=== PATIENT | male | born 1965 | race Caucasian/White ===

== ENCOUNTER → 2016-06-10 | Outpatient (CLI) | payer OTHER ==
[2016-06-10 17:21] LABS: CH 31.2; CHCM 35.4; HCT 41.2 % (39.0-53.0); HDW 2.61; HGB 14.2 gm/dL (13.0-17.5); MCH 30.5 pg (25.0-35.0); MCHC 34.5 g/dL (31.0-37.0); MCV 88.6 fL (80.0-100.0); Mean Platelet Volume 6.6; RBC 4.65 m/uL (4.30-5.90); RDW 12.5 % (11.5-15.5); WBC 6.7 k/uL (3.8-10.6)
[2016-06-10 17:36] LABS: C Reactive Protein 7.5 mg/L (<10.0); Rheumatoid Factor, Qnt <9 IU/mL (<12)
[2016-06-10 18:23] LABS: Erythrocyte Sedimentation Rate 8 mm/hr (0-15)
[2016-06-11 00:35] LABS: ANA w/Reflex to Titer NEGATIVE (NEGATIVE)
[2016-06-11 07:26] LABS: Lyme Antibodies Total(IgG/IgM) 0.06 (<0.90)
[2016-06-11 08:24] LABS: HLA B27 NEGATIVE; HLA B27 Comment SEEBELOW
== END | disposition home or self-care (01) ==
LOC: LABWHC1 16:52
PROVIDERS: ATTEND Orthopaedic Surgery
DX: Z47.89 Encounter for other orthopedic aftercare (principal); M17.11 Unilateral primary osteoarthritis, right knee; M25.461 Effusion, right knee; Z98.890 Other specified postprocedural states
CPT/HCPCS: 36415; 84443; 85027; 85652; 86038; 86060; 86140; 86431; 86618; 86812

== ENCOUNTER → 2016-08-15 | Outpatient (CLI) | payer OTHER ==
--- NOTE | 2016-08-15 23:16 | MR ---
EXAMINATION TYPE: MR cervical spine wo con DATE OF EXAM: 08/15/2016 COMPARISON: NONE HISTORY: Neck pain, isaac arm weakness, headaches x 1 year, no surgery/trauma TECHNIQUE: Multiplanar, multisequence images of the cervical spine were acquired. Findings The cervical vertebra have normal alignment. There is decreased signal and mild narrowing the disc sp aces throughout the cervical spine. There are small posterior disc herniations at C3-4 C4-5 C5-6. The re is some narrowing of the spinal canal to 7 mm at C3-4 and 8 mm at C5-6. There is linear fluid sign al within the cervical cord from C5 to T1. There is a small 5 mm linear area of increased signal with in the cord at C3-4. The brainstem is intact. There is no evidence of a fracture. There is no paraspi nal mass. IMPRESSION: Multilevel spondylosis. Mild multilevel posterior cervical disc herniation with mild spinal stenosis. There is a syrinx from C5 to T1 as well as a short segment of edema or syrinx within the cord at C3- 4 disc level. No mass is seen to suggest an underlying tumor.
== END | disposition home or self-care (01) ==
LOC: RADMRIMAIN 19:10
PROVIDERS: ATTEND Internal Medicine Rheumatology
DX: M48.02 Spinal stenosis, cervical region (principal); M50.11 Cervical disc disorder with radiculopathy, high cervical region; M47.22 Other spondylosis with radiculopathy, cervical region; G95.0 Syringomyelia and syringobulbia
CPT/HCPCS: 72141

== ENCOUNTER 2017-04-10 18:06 | Inpatient (IN) | payer OTHER ==
[2017-04-10] MEDS ORDERED: SODIUM CHLORIDE 0.9% 1,000 ML IV STA (19:45)
[2017-04-10] MEDS ORDERED: SODIUM CHLORIDE 0.9% 500 ML IV STA (19:45)
--- NOTE | 2017-04-10 19:48 | ED ---
General Adult HPI - General Chief complaint: GI Bleed Stated complaint: ABDOMINAL PAIN Time Seen by Provider: 04/10/17 18:25 Source: patient, RN notes reviewed Mode of arrival: ambulatory Limitations: no limitations - History of Present Illness Initial comments: This is a 51-year-old male who presents emergency department stating that a week ago he had surgery on his neck with an anterior approach in a cervical fusion. Patient states he came back to the hospital secondary to throat swelling and pain in the throat a few days ago was admitted. Patient states since she's been back home again he is now having rectal bleeding today and some abdominal cramping. Patient denies being in any thinners. Patient states she's never had history this before. Patient states he has been vomiting over the last couple of days and he is afraid he anything because it makes him nauseous and vomit which hurts extremely bad. Patient states he has no specific area of abdominal pain but kind of diffuse lower abdominal cramping. Patient denies any fever chills. Patient denies any previous abdominal surgeries. Patient denies any chest pain difficulty breathing or shortness of breath. - Related Data Home Medications Medication Instructions Recorded Confirmed Ibuprofen [Motrin] 800 mg PO BID 10/11/15 10/11/15 Previous Rx's Medication Instructions Recorded Dexamethasone 0.75 mg PO DIRECTED #12 tablet 10/11/15 Hydrocodone/Acetaminophen [[place] 1 each PO Q6HR PRN #20 tab 10/11/15 5-325] Ibuprofen [Motrin] 800 mg PO Q6HR PRN #30 tab 10/11/15 Allergies Allergy/AdvReac Type Severity Reaction Status Date / Time No Known Allergies Allergy Verified 04/10/17 18:24 Review of Systems ROS Statement: Those systems with pertinent positive or pertinent negative responses have been documented in the HPI. ROS Other: All systems not noted in ROS Statement are negative. Past Medical History Past Medical History: No Reported History History of Any Multi-Drug Resistant Organisms: None Reported Additional Past Surgical History / Comment(s): right knee and hand, neck surgery , fusion C3-4 Past Psychological History: No Psychological Hx Reported Smoking Status: Current every day smoker Past Alcohol Use History: Occasional Past Drug Use History: None Reported General Exam - General Exam Comments Initial Comments: GENERAL: Patient is well-developed and well-nourished. Patient is nontoxic and well- hydrated and is in mild distress. ENT: Neck is soft and supple. No significant lymphadenopathy is noted. Oropharynx is clear. Moist mucous membranes. Neck has full range of motion without eliciting any pain. EYES: The sclera were anicteric and conjunctiva were pink and moist. Extraocular movements were intact and pupils were equal round and reactive to light. Eyelids were unremarkable. PULMONARY: Unlabored respirations. Good breath sounds bilaterally. No audible rales rhonchi or wheezing was noted. CARDIOVASCULAR: There is a regular rate and rhythm without any murmurs gallops or rubs. ABDOMEN: Mild lower abdominal tenderness no rebound or guarding slightly more tender on the left than the right. No palpable organomegaly was noted. There is no palpable pulsatile mass. SKIN: Skin is clear with no lesions or rashes and otherwise unremarkable. NEUROLOGIC: Patient is alert and oriented x3. Cranial nerves II through XII are grossly intact. Motor and sensory are also intact. Normal speech, volume and content. Symmetrical smile. MUSCULOSKELETAL: Normal extremities with adequate strength and full range of motion. No lower extremity swelling or edema. No calf tenderness. LYMPHATICS: No significant lymphadenopathy is noted PSYCHIATRIC: Normal psychiatric evaluation. Limitations: no limitations Course Vital Signs 04/10/17 04/10/17 18:24 20:42 Temperature 98.2 F 98.1 F Pulse Rate 89 64 Respiratory 17 18 Rate Blood Pressure 144/101 146/95 O2 Sat by Pulse 95 97 Oximetry Medical Decision Making - Medical Decision Making Patient stated he got steroid shots on Monday and Monday and was post starts to hurt again today for swelling in his neck. Patient denies any abdominal pain he states it's lower abdominal cramping - Lab Data Result diagrams: 04/10/17 20:05 04/10/17 20:05 Lab Results 04/10/17 04/10/17 04/10/17 Range/Units 20:05 20:05 20:05 WBC 19.8 H (3.8-10.6) k/uL RBC 5.01 (4.30-5.90) m/uL Hgb 15.1 (13.0-17.5) gm/dL Hct 45.4 (39.0-53.0) % MCV 90.6 (80.0-100.0) fL MCH 30.1 (25.0-35.0) pg MCHC 33.3 (31.0-37.0) g/dL RDW 12.8 (11.5-15.5) % Plt Count 282 (150-450) k/uL Neutrophils % 81 % Lymphocytes % 10 % Monocytes % 6 % Eosinophils % 2 % Basophils % 0 % Neutrophils # 16.0 H (1.3-7.7) k/uL Lymphocytes # 2.0 (1.0-4.8) k/uL Monocytes # 1.2 H (0-1.0) k/uL Eosinophils # 0.4 (0-0.7) k/uL Basophils # 0.1 (0-0.2) k/uL PT 9.8 (9.0-12.0) sec INR 1.0 (<1.2) APTT 23.7 (22.0-30.0) sec Sodium 138 (137-145) mmol/L Potassium 4.1 (3.5-5.1) mmol/L Chloride 101 (98-107) mmol/L Carbon Dioxide 25 (22-30) mmol/L Anion Gap 12 mmol/L BUN 21 H (9-20) mg/dL Creatinine 0.88 (0.66-1.25) mg/dL Est GFR (MDRD) Af Amer >60 (>60 ml/min/1.73 sqM) Est GFR (MDRD) Non-Af >60 (>60 ml/min/1.73 sqM) Glucose 101 H (74-99) mg/dL Calcium 9.8 (8.4-10.2) mg/dL Total Bilirubin 0.8 (0.2-1.3) mg/dL AST 17 (17-59) U/L ALT 33 (21-72) U/L Alkaline Phosphatase 85 (38-126) U/L Total Protein 6.7 (6.3-8.2) g/dL Albumin 4.0 (3.5-5.0) g/dL Disposition Clinical Impression: Abdominal cramping, Gastrointestinal hemorrhage Disposition: ADMITTED IP TO THIS HOSP Referrals: Quique Baker MD [Primary Care Provider] - 1-2 days Time of Disposition: 21:34
[2017-04-10 20:19] LABS: Basophils # (A) 0.1 k/uL (0-0.2); Basophils % (A) 0 %; Eosinophils # (A) 0.4 k/uL (0-0.7); Eosinophils % (A) 2 %; HCT 45.4 % (39.0-53.0); HGB 15.1 gm/dL (13.0-17.5); Lymphocytes % (A) 10 %; MCH 30.1 pg (25.0-35.0); MCHC 33.3 g/dL (31.0-37.0); MCV 90.6 fL (80.0-100.0); Mean Platelet Volume 6.7; Monocytes # (A) 1.2 k/uL (0-1.0); Monocytes % (A) 6 %; Neutrophils % (A) 81 %; Platelet Count 282 k/uL (150-450); RBC 5.01 m/uL (4.30-5.90); RDW 12.8 % (11.5-15.5); WBC 19.8 k/uL (3.8-10.6)
[2017-04-10 20:33] LABS: ALT 33 U/L (21-72); AST 17 U/L (17-59); Alkaline Phosphatase 85 U/L (38-126); Anion Gap 12 mmol/L; Blood Urea Nitrogen 21 mg/dL (9-20); Calcium 9.8 mg/dL (8.4-10.2); Carbon Dioxide 25 mmol/L (22-30); Chloride 101 mmol/L (98-107); Glucose 101 mg/dL (74-99); Potassium 4.1 mmol/L (3.5-5.1); Sodium 138 mmol/L (137-145); Total Bilirubin 0.8 mg/dL (0.2-1.3); Total Protein 6.7 g/dL (6.3-8.2)
[2017-04-10 20:36] LABS: Partial Thromboplastin Time 23.7 sec (22.0-30.0); Prothrombin Time 9.8 sec (9.0-12.0)
[2017-04-10] MEDS ORDERED: SODIUM CHLORIDE 0.9% 1,000 ML IV ONE (21:40)
[2017-04-10] MEDS: MORPHINE SULFATE 4 MG/ML SYRINGE IVP PRN (23:21)
[2017-04-10] MEDS: ONDANSETRON 4 MG/2 ML VIAL IVP PRN (23:22)
[2017-04-10 23:49] VITALS: BMI 25.2
[2017-04-11] MEDS ORDERED: METHOCARBAMOL 750 MG TAB PO PRN (00:05)
[2017-04-11] MEDS ORDERED: ALBUTEROL NEBULIZED 2.5 MG/3 ML INHALATION PRN (00:05)
[2017-04-11] MEDS: ONDANSETRON 4 MG/2 ML VIAL IVP PRN ×3 (05:43→21:27)
[2017-04-11] MEDS: MORPHINE SULFATE 4 MG/ML SYRINGE IVP PRN ×5 (05:43→21:27)
[2017-04-11 08:39] LABS: Basophils # (A) 0.1 k/uL (0-0.2); Basophils % (A) 0 %; Eosinophils # (A) 0.3 k/uL (0-0.7); Eosinophils % (A) 2 %; HCT 41.7 % (39.0-53.0); HGB 13.9 gm/dL (13.0-17.5); Lymphocytes # (A) 1.7 k/uL (1.0-4.8); Lymphocytes % (A) 9 %; MCHC 33.4 g/dL (31.0-37.0); MCV 89.8 fL (80.0-100.0); Mean Platelet Volume 6.9; Monocytes # (A) 1.3 k/uL (0-1.0); Monocytes % (A) 7 %; Neutrophils # (A) 15.5 k/uL (1.3-7.7); Neutrophils % (A) 82 %; Platelet Count 248 k/uL (150-450); RBC 4.64 m/uL (4.30-5.90); RDW 12.8 % (11.5-15.5); WBC 19.1 k/uL (3.8-10.6)
--- NOTE | 2017-04-11 10:03 | P.CONS ---
History of Present Illness - Reason for Consult Consult date: 04/11/17 Rectal bleeding Requesting physician: Jarocho Matt - History of Present Illness 51-year-old gentleman status post recent neck surgery fusion at [facility] a week ago Monday presents with acute lower abdominal crampy abdominal pain and bloody stools. Patient was recently hospitalized Monday at [facility] for postoperative dysphagia type symptoms placed on steroids and discharged. On Monday he developed intractable nausea vomiting intense lower abdominal cramping associated with multiple gross bloody bowel movements. Denies fever chills melena or hematemesis. Last emesis was Monday. Bowel movement this morning was mixed with stool and blood. Nursing has not witnessed his bowel movements. Admission hemoglobin 15.1. Presently 13.9. White count 19.1. Platelet 248. MCV 89. INR 1.0. BUN 21. Stool occult blood negative. Creatinine 0.8. No history of GI bleed. Last colonoscopy several years ago to his memory was unremarkable. No excessive NSAIDs or aspirin. No alcohol. Review of Systems Constitutional: Denies fever, chills, sweats, weight gain, or loss. HEENT: Negative for migraines, blurred vision or loss, earaches, drainage, tinnitus, oral mucosal lesions, dysphagia, or odynophagia. Cardiac: Negative for chest pain, arrhythmias, or palpitation. Respiratory: Negative for shortness of breath, hemoptysis, cough, or sputum production. Gastrointestinal: See HPI for pertinent findings. Genitourinary: Negative for hematuria, urgency, frequency, polyuria, dysuria, or penile discharge. Musculoskeletal: Degenerative disc disease. Negative for muscle aches, swelling , arthritis, and arthralgias. Neurologic: Negative for stroke or TIA. Endocrine: Negative for thyroid problems. Skin: Negative for rash or itching. Psychiatric: Negative history for depression and anxiety Past Medical History Past Medical History: Pneumonia History of Any Multi-Drug Resistant Organisms: None Reported Additional Past Surgical History / Comment(s): right knee and hand, neck surgery , fusion C3-4 Past Psychological History: No Psychological Hx Reported Smoking Status: Former smoker Past Alcohol Use History: Occasional Additional Past Alcohol Use History / Comment(s): Quit smoking a few weeks ago. Past Drug Use History: None Reported Medications and Allergies Home Medications Medication Instructions Recorded Confirmed Type Albuterol Sulfate [Proair 2 inhaler PO Q4HR 04/10/17 04/11/17 History Respiclick] HYDROcodone/APAP 10-325MG [[place] 1 tab PO Q6H PRN 04/10/17 04/10/17 History 10-325] Methocarbamol [Robaxin] 750 mg PO Q8H 04/10/17 04/10/17 History Ondansetron [Zofran] 4 mg PO Q8HR PRN 04/10/17 04/10/17 History Sennosides-Docusate Sodium 1 tab PO BID 04/10/17 04/10/17 History [Senokot-S] Allergies Allergy/AdvReac Type Severity Reaction Status Date / Time No Known Allergies Allergy Verified 04/10/17 22:18 Physical Exam Vitals: Vital Signs Temp Pulse Pulse Resp BP BP Pulse Ox 04/11/17 06:07 98.3 F 63 18 137/87 96 04/10/17 23:00 97.4 F L 74 18 139/99 95 04/10/17 22:08 98.2 F 67 16 150/90 96 04/10/17 20:42 98.1 F 64 18 146/95 97 04/10/17 18:24 98.2 F 89 17 144/101 95 Intake and Output 04/10/17 04/11/17 04/11/17 22:59 06:59 14:59 Other: Voiding Method Toilet # Voids 1 # Bowel Movements 1 Weight 84.5 kg General appearance: The patient is alert, oriented, in no acute distress. HET: Head is normocephalic and atraumatic. Pupils are equal and reactive. Oropharynx is clear without lesions. Neck: Neck brace in place. Heart: S1 S2. Regular rate and rhythm. Lungs: No crackles or wheezes are heard. Abdomen: Soft, mild tenderness to the mid/ left lower quadrant nondistended with bowel sounds. No peritoneal signs. No palpable organomegaly or masses. Extremities: Normal skin color and turgor. No cyanosis, rash, ulceration, clubbing, or edema. Radial and pedal pulses are 2/4 bilaterally. Neurological: No focal deficits. Strength and sensation are grossly intact. Results CBC & Chem 7: 04/11/17 07:53 04/10/17 20:05 Labs: Abnormal Lab Results - Last 24 Hours (Table) 04/10/17 04/10/17 04/11/17 Range/Units 20:05 20:05 07:53 WBC 19.8 H 19.1 H (3.8-10.6) k/uL Neutrophils # 16.0 H 15.5 H (1.3-7.7) k/uL Monocytes # 1.2 H 1.3 H (0-1.0) k/uL BUN 21 H (9-20) mg/dL Glucose 101 H (74-99) mg/dL Assessment and Plan (1) Abdominal pain Narrative/Plan: 51-year-old male status post recent neck surgery admitted with leukocytosis, acute crampy lower abdominal pain with bloody stools. Possible self-limiting infectious colitis possible inflammatory colitis possible ischemic. Hemoglobin presently 13.9. Current Visit: Yes Status: Acute Code(s): R10.9 - UNSPECIFIED ABDOMINAL PAIN SNOMED Code(s): 06620197 (2) Rectal bleeding Current Visit: Yes Status: Acute Code(s): K62.5 - HEMORRHAGE OF ANUS AND RECTUM SNOMED Code(s): 20385105 Plan: 1. Stool studies include Clostridium difficile testing secondary to recent hospitalization. Nursing was advised to place a container in toilet for stool collection and record. Notify GI service if patient has recurrent bloody stools. 2. Clear liquid diet. CBC monitoring. Inpatient colonoscopy contingent on clinical course. 3. Will follow closely with you. Thank you for this kind referral and the opportunity to participate in the care of your patient. This consultation was discussed with Dr. Villanueva. The impression and plan of care have been directed as dictated.
--- NOTE | 2017-04-11 11:55 | P.CNPUL ---
History of Present Illness Consult date: 04/11/17 Reason for consult: asthma Chief complaint: GI bleed/abdominal pain History of present illness: Consult dated 04/11/2017 This is a 51-year-old male who presented to the emergency department complaining of a week's worth of throat pain with swallowing and pain in the throat and neck area. The patient recently had a cervical fusion via the anterior approach. Subsequent to that, he was having some rectal bleeding and some abdominal cramping and pain. He apparently is also had some nausea and vomiting over last couple of days the pain is mostly cramping in nature and diffuse throughout the abdomen. No fever or chills. He denies any previous abdominal surgeries. Denies any chest pain. No shortness of breath. I apparently saw him a couple years ago and diagnosed him with him as having asthma. He apparently is on a rescue inhaler and Advair. He did not bring either to the hospital with him. He is concerned that if he doesn't get something, his asthma acting up. Again not having any respiratory issues at this time. Denies any shortness of breath chest tightness wheezing cough phlegm production hemoptysis or any other pulmonary complaints at this time. Review of Systems A 12 point review of system is positive for abdominal pain and cramping GI bleed nausea and vomiting. He absolutely denies any respiratory issues. His asthma is currently not active. No shortness phlegm production. Past Medical History Past Medical History: Pneumonia History of Any Multi-Drug Resistant Organisms: None Reported Additional Past Surgical History / Comment(s): right knee and hand, neck surgery , fusion C3-4 Past Psychological History: No Psychological Hx Reported Smoking Status: Former smoker Past Alcohol Use History: Occasional Additional Past Alcohol Use History / Comment(s): Quit smoking a few weeks ago. Past Drug Use History: None Reported Medications and Allergies Home Medications Medication Instructions Recorded Confirmed Type Albuterol Sulfate [Proair 2 inhaler PO Q4HR 04/10/17 04/11/17 History Respiclick] HYDROcodone/APAP 10-325MG [[place] 1 tab PO Q6H PRN 04/10/17 04/10/17 History 10-325] Methocarbamol [Robaxin] 750 mg PO Q8H 04/10/17 04/10/17 History Ondansetron [Zofran] 4 mg PO Q8HR PRN 04/10/17 04/10/17 History Sennosides-Docusate Sodium 1 tab PO BID 04/10/17 04/10/17 History [Senokot-S] Allergies Allergy/AdvReac Type Severity Reaction Status Date / Time No Known Allergies Allergy Verified 04/10/17 22:18 Physical Exam Osteopathic Statement: *. No significant issues noted on an osteopathic structural exam other than those noted in the History and Physical/Consult. Vitals: Vital Signs Temp Pulse Pulse Resp BP BP Pulse Ox 04/11/17 06:07 98.3 F 63 18 137/87 96 04/10/17 23:00 97.4 F L 74 18 139/99 95 04/10/17 22:08 98.2 F 67 16 150/90 96 04/10/17 20:42 98.1 F 64 18 146/95 97 04/10/17 18:24 98.2 F 89 17 144/101 95 Intake and Output 04/10/17 04/11/17 04/11/17 22:59 06:59 14:59 Other: Voiding Method Toilet # Voids 1 # Bowel Movements 1 Weight 84.5 kg No acute distress, oriented 3. HEENT examination is grossly unremarkable. Mucous membranes are moist. No oral lesions. Neck supple. Full range of motion. No adenopathy thyromegaly or neck vein distention. The patient is wearing a cervical collar. Cardiovascular examination reveals regular rhythm rate. S1-S2 normal. No S3 or S4. No discernible murmur noted. Lungs reveal clear breath sounds. Her sounds are equal bilaterally. No adventitious lung sounds including wheezes rhonchi or crackles. Abdomen soft bowel sounds are heard. No masses or tenderness. Extremities are intact. No cyanosis clubbing or edema. Skin is without rash or lesion. Neurologic examination is brief but nonfocal. Results - Laboratory Findings CBC and BMP: 04/11/17 07:53 04/10/17 20:05 PT/INR, D-dimer PT 9.8 sec (9.0-12.0) 04/10/17 20:05 INR 1.0 (<1.2) 04/10/17 20:05 Abnormal lab findings: Abnormal Labs 04/10/17 04/10/17 04/11/17 20:05 20:05 07:53 WBC 19.8 H 19.1 H Neutrophils # 16.0 H 15.5 H Monocytes # 1.2 H 1.3 H BUN 21 H Glucose 101 H - Diagnostic Findings Chest x-ray: image reviewed (Labs x-rays a medications are all reviewed.) Assessment and Plan Assessment: Assessment Recent cervical fusion, anterior approach Abdominal pain cramping nausea vomiting and GI bleed History of asthma, long-standing in inactive. History of ongoing tobacco use with nicotine addiction Plan: Plan dated 04/11/2017 I will order the patient Symbicort 160/4.5, 2 puffs twice a day and will order him some updrafts with albuterol when necessary. No additional recommendations are made. His asthma is currently not active. We'll only see the patient has needed. Time with Patient: Greater than 30
--- NOTE | 2017-04-11 16:27 | CT ---
EXAMINATION TYPE: CT abdomen pelvis wo con DATE OF EXAM: 04/11/2017 COMPARISON: NONE HISTORY: 51-year-old male with pain, possible colitis CT DLP: 981 mGycm. Automated exposure control for dose reduction was used. TECHNIQUE: Contiguous axial scanning of the abdomen and pelvis without IV contrast. Coronal and sagit antonio reconstructions performed. FINDINGS: Heart is normal size without pericardial effusion. Strandy atelectasis in the lung bases. There is a trace right greater than left effusion. Calcified granuloma left base. Tiny hiatal hernia. Noncontrast appearance of the liver, adrenal glands, kidneys, spleen, and pancreas show no gross abno rmality. The gallbladder is borderline hydropic measuring 4.0 cm wide. No surrounding inflammatory change. There is trace perihepatic ascites and small ascites tracking down along the lower abdomen and small ascites collecting in the cul-de-sac. Moderate atherosclerotic calcifications distal abdominal aorta with mild aneurysm at 3.0 cm. Small fatty umbilical hernia. Couple borderline distended small bowel loops in the left upper and mid abdomen without transition po int. Sigmoid diverticulosis. There is long segment wall thickening of the colon extending from the spleni c flexure down to the proximal sigmoid. Moderate edematous wall thickening with moderate surrounding fat stranding. Mild circumferential bladder wall thickening could represent cystitis or chronic bladder wall hypertr ophy. Prostate gland prominent at 4.1 cm wide. Bones: Mild degenerative changes at the SI joints. Degenerative disc disease mid to lower lumbar spin e with facet arthropathy lower lumbar spine. No osseous destructive process. IMPRESSION: 1. Nonspecific long segment colitis extending from the splenic flexure down to the proximal sigmoid with moderate edematous wall thickening and surrounding inflammation. 2. Mild abdominopelvic ascites probably reactive. No free air. 3. Trace pleural effusions. 4. Borderline hydropic gallbladder likely relating to fasting state. If right upper quadrant pain or concern for early acute cholecystitis, follow-up ultrasound or HIDA scan. 5. Sigmoid diverticulosis without acute diverticulitis.
[2017-04-11] MEDS: PIPERACILLIN-TAZOBACTAM 3.375 GM in DEXTROSE/WATER 1 50ML.BAG IVPB SCH ×2 (16:29→23:50)
[2017-04-11] MEDS: LACTATED RINGERS 1,000 ML IV SCH (16:30)
--- NOTE | 2017-04-11 16:59 | HP ---
HISTORY AND PHYSICAL DATE OF ADMISSION: April 10, 2017. PRESENT COMPLAINT: Abdominal cramping, bloody stool. HISTORY OF PRESENTING COMPLAINT: This is a very pleasant 51 -year-old patient of Dr. Baker. Exactly a week ago, the patient underwent a cervical spine fusion at [facility] by Dr. Ni. The patient is having trouble swallowing, was readmitted on Monday and then discharged on Monday, was given some steroids. The patient was on a liquid and a soft diet. The next day, patient started having increasing abdominal pain and cramping and bloody stools and therefore presented here. The patient denies any prior history of peptic ulcer disease. The patient was taking Motrin about 800 mg prior to the surgery. The patient has diffuse abdominal pain. No fever. Because still having some trouble swallowing, Dr. Gonzalez was consulted last night from an airway standpoint. The patient has a cervical collar in place. Feeling weak and tired. REVIEW OF SYSTEMS: Constitutional: Tired. HEENT: Slight trouble in swallowing but no different than his baseline, that he has had for the last one week. RESPIRATORY: None. Cardiovascular none. Gastrointestinal as above. Genitourinary: None. Musculoskeletal: Neck pain prior to surgery. Dermatological: None. Hematologic: None. Lymphatic: None. Psychiatry: None. NEUROLOGICAL: None. PAST MEDICAL HISTORY: Cervical spine problem, asthma. PAST SURGICAL HISTORY: Right knee and hand, neck surgeries, fusion to C3, C4. 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 Smokes about 3-4 cigarettes a day, stopped 2 weeks ago prior to surgery. . FAMILY HISTORY: Reviewed, noncontributory to presentation. HOME MEDICATIONS: 1. ProAir 2 inhaler q.4h p.r.n. 2. Senokot S 1 tablet p.o. b.i.d. 3. Zofran 4 mg p.o. p.r.n. 4. Robaxin 750 mg p.o. p.r.n. 5. [place] 10 1 tab q.6h p.r.n. ALLERGIES: None. EXAMINATION: Vital signs on presentation: Temperature 98.2, pulse 59, respiratory rate 17, blood pressure is 144/101, pulse ox 95% on room. General appearance: Average build, lying in bed. EYES: Pupils are equal. Conjunctivae are normal. HEENT external appearance of nose and ears normal. Oral cavity normal. Neck: Cervical collar in place. Respiratory effort: Lungs fair entry. Cardiovascular: 1st and 2nd sounds normal. No edema. Abdomen diffuse tenderness. Soft. No guarding or rigidity. Liver and spleen not palpable. Lymphatics: No lymph nodes palpable in the neck or axilla. Psychiatry: Alert and oriented times three. Mood and affect normal. Neurological: Pupils equal. Cranial nerves grossly intact. Power and sensation grossly intact. INVESTIGATIONS: White count 9.8, hemoglobin 15.1, potassium 4.1, BUN 21, creatinine 0.888. ASSESSMENT: 1. This is a patient who presents with 2 days of increasing diffuse abdominal pain, cramping, diffuse tenderness. No guarding or rigidity with bloody stool. This is most likely infectious colitis, less likely ischemic colitis. Peptic ulcer disease is possible, but given that this abdominal pain is diffuse as opposed to upper abdominal, makes colitis more likely. 2. Mild dysphagia, probably due to swelling from recent cervical spine surgery. 3. Cervical spine C3-4 fusion, status post. 4. Mild intermittent asthma, stable. PLAN: Dr. Gonzalez from Pulmonary was consulted, so was Gastroenterology. We will order a CT scan of the abdomen and pelvis, and we will give the patient IV ceftriaxone and IV fluids. Hold off any anticoagulation because of the bleeding. Care was discussed with the patient. We will get a chest x-ray, abdominal x-ray and a CT scan too. Care was discussed with the patient. Questions were answered. Copy to Dr. Baker. MMDICKL / CLOVERN: [id number] /
--- NOTE | 2017-04-11 20:01 | XR ---
EXAMINATION TYPE: XR abdomen 2V DATE OF EXAM: 04/11/2017 4:02 PM CLINICAL HISTORY: Abdominal pain TECHNIQUE: Single supine image of the abdomen is obtained. COMPARISON: None. FINDINGS: Scattered air-fluid levels are seen within nondilated small bowel within mildly dilated bow el within the left upper quadrant measuring up to 3.9 cm osseous gas is noted within the descending c olon. No abnormal calcification is seen within the abdomen or pelvis. Osseous structures are intact. The lung bases are clear and the osseous structures are intact. IMPRESSION: Mildly dilated loops of small bowel within the left upper quadrant suggestive of ileus.
[2017-04-11] MEDS: SYMBICORT 160-4.5 MCG INHALER INHALATION SCH (21:12)
[2017-04-12] MEDS: MORPHINE SULFATE 4 MG/ML SYRINGE IVP PRN ×5 (02:49→22:45)
[2017-04-12] MEDS: ONDANSETRON 4 MG/2 ML VIAL IVP PRN ×2 (02:51→08:01)
[2017-04-12] MEDS: LACTATED RINGERS 1,000 ML IV SCH ×4 (02:53→23:15)
[2017-04-12] MEDS: SYMBICORT 160-4.5 MCG INHALER INHALATION SCH ×2 (07:49→18:58)
[2017-04-12] MEDS: PIPERACILLIN-TAZOBACTAM 3.375 GM in DEXTROSE/WATER 1 50ML.BAG IVPB SCH ×3 (08:01→23:15)
[2017-04-12 08:21] LABS: Basophils % (A) 0 %; Eosinophils # (A) 0.5 k/uL (0-0.7); Eosinophils % (A) 3 %; HCT 41.2 % (39.0-53.0); HGB 13.8 gm/dL (13.0-17.5); Lymphocytes # (A) 1.7 k/uL (1.0-4.8); Lymphocytes % (A) 10 %; MCHC 33.6 g/dL (31.0-37.0); MCV 89.5 fL (80.0-100.0); Mean Platelet Volume 7.1; Monocytes # (A) 0.9 k/uL (0-1.0); Monocytes % (A) 5 %; Neutrophils # (A) 13.9 k/uL (1.3-7.7); Neutrophils % (A) 81 %; Platelet Count 241 k/uL (150-450); RDW 12.9 % (11.5-15.5); WBC 17.2 k/uL (3.8-10.6)
[2017-04-12 08:55] LABS: Anion Gap 13 mmol/L; Blood Urea Nitrogen 13 mg/dL (9-20); Calcium 9.1 mg/dL (8.4-10.2); Carbon Dioxide 26 mmol/L (22-30); Chloride 99 mmol/L (98-107); Glucose 83 mg/dL (74-99); Potassium 4.1 mmol/L (3.5-5.1); Sodium 138 mmol/L (137-145)
--- NOTE | 2017-04-12 10:57 | P.PN ---
Subjective Progress Note Date: 04/12/17 Principal diagnosis: Abdominal pain and rectal bleeding No further bloody bowel movements. Abdominal pain still present slightly improved. Afebrile. Hemoglobin 13.8. White count 17.2. CT abdomen long segment wall thickening or colon extending from splenic flexure down to proximal sigmoid. Sigmoid diverticulosis without diverticulitis. Objective - Vital Signs Vital signs: Vital Signs Temp 98.7 F 04/12/17 06:41 Pulse 67 04/12/17 06:41 Resp 12 04/12/17 06:41 BP 141/90 04/12/17 06:41 Pulse Ox 97 04/12/17 06:41 Intake & Output 04/11/17 04/12/17 04/12/17 18:59 06:59 18:59 Other: Voiding Method Toilet # Voids 1 1 # Bowel Movements 0 - Exam General appearance: The patient is alert, oriented, in no acute distress. HET: Head is normocephalic and atraumatic. Pupils are equal and reactive. Oropharynx is clear without lesions. Neck: Supple without lymphadenopathy. Trachea midline. Heart: S1 S2. Regular rate and rhythm. Lungs: No crackles or wheezes are heard. Abdomen: Soft, mild midabdominal left-sided tenderness, nondistended with bowel sounds. No peritoneal signs. No palpable organomegaly or masses. Extremities: Normal skin color and turgor. No cyanosis, rash, ulceration, clubbing, or edema. Radial and pedal pulses are 2/4 bilaterally. Neurological: No focal deficits. Strength and sensation are grossly intact. - Labs CBC & Chem 7: 04/12/17 07:48 04/12/17 07:48 Labs: Abnormal Lab Results - Last 24 Hours (Table) 04/12/17 Range/Units 07:48 WBC 17.2 H (3.8-10.6) k/uL Neutrophils # 13.9 H (1.3-7.7) k/uL Assessment and Plan (1) Abdominal pain Narrative/Plan: 51-year-old male status post recent neck surgery admitted with leukocytosis, acute crampy lower abdominal pain with bloody stools. Possible self-limiting infectious colitis possible inflammatory colitis possible ischemic. Hemoglobin presently 13.8. Current Visit: Yes Status: Acute Code(s): R10.9 - UNSPECIFIED ABDOMINAL PAIN SNOMED Code(s): 91729744 (2) Rectal bleeding Current Visit: Yes Status: Acute Code(s): K62.5 - HEMORRHAGE OF ANUS AND RECTUM SNOMED Code(s): 56893636 Plan: 1. Continue clear liquids and advance slowly. 2. Outpatient colonoscopy recommended 2-4 weeks. 3. Continue with antibiotics supportive measures. We'll continue to follow with you. Assessment and plan a care discussed with Dr. Villanueva
--- NOTE | 2017-04-12 12:11 | P.PN ---
Subjective Progress Note Date: 04/12/17 Principal diagnosis: GI bleed Progress note dated 04/12/2017 51-year-old male who presented to the emergency department with complaints of a week's worth of throat pain or difficulty swallowing. The patient had a recent cervical fusion via the anterior approach has a neck brace soft collar in place. In addition, he was having some rectal bleeding with abdominal cramping pain. The patient has a prior diagnosis of asthma, diagnosed by me a couple years back. I've not seen him recently. I saw him yesterday just basically say that he doesn't fact have asthma and he should be on his medications. At home, he is on a rescue inhaler probably Proventil Pro Air, along with Advair. Yesterday we put him on albuterol updrafts when necessary and Symbicort 160/4.5 , 2 puffs twice a day. The patient's asthma stable. He denies shortness of breath chest tightness wheezing cough phlegm production hemoptysis or any other pulmonary complaints for that matter. Also, his GI bleed and his abdominal pain has improved. Objective - Vital Signs Vital signs: Vital Signs Temp 98.7 F 04/12/17 06:41 Pulse 67 04/12/17 06:41 Resp 12 04/12/17 06:41 BP 141/90 04/12/17 06:41 Pulse Ox 97 04/12/17 06:41 Intake & Output 04/11/17 04/12/17 04/12/17 18:59 06:59 18:59 Other: Voiding Method Toilet # Voids 1 1 # Bowel Movements 0 - Exam No acute distress, oriented 3. HEENT examination is grossly unremarkable. Mucous membranes are moist. No oral lesions. Neck supple. Full range of motion. No adenopathy thyromegaly or neck vein distention. Cardiovascular examination reveals regular rhythm rate. S1-S2 normal. No S3 or S4. No discernible murmur noted. Lungs reveal clear breath sounds. Her sounds are equal bilaterally. No adventitious lung sounds including wheezes rhonchi or crackles. Abdomen soft bowel sounds are heard. No masses or tenderness. Extremities are intact. No cyanosis clubbing or edema. Skin is without rash or lesion. Neurologic examination is brief but nonfocal. - Labs CBC & Chem 7: 04/12/17 07:48 04/12/17 07:48 Labs: Abnormal Lab Results - Last 24 Hours (Table) 04/12/17 Range/Units 07:48 WBC 17.2 H (3.8-10.6) k/uL Neutrophils # 13.9 H (1.3-7.7) k/uL Assessment and Plan Assessment: Assessment Recent cervical fusion, anterior approach Abdominal pain cramping nausea vomiting and GI bleed History of asthma, long-standing in inactive. History of ongoing tobacco use with nicotine addiction Plan: Plan dated 04/11/2017 I will order the patient Symbicort 160/4.5, 2 puffs twice a day and will order him some updrafts with albuterol when necessary. No additional recommendations are made. His asthma is currently not active. We'll only see the patient has needed. Plan dated 04/04/2017 The patient's workup for the GI bleeding continues. From the pulmonary standpoint, he is stable. He denies any chest tightness wheezing coughing shortness of breath phlegm production or hemoptysis. The patient was given back his combination long-acting beta agonist and inhaled corticosteroid. Unfortunately we do not have Advair on formulary here, so we gave him Symbicort which is a similar drug. Time with Patient: Less than 30
--- NOTE | 2017-04-12 18:42 | PN ---
PROGRESS NOTE DATE OF SERVICE: 04/12/17 PRESENTING COMPLAINT: Abdominal pain. INTERVAL HISTORY: Patient status post cervical spine surgery, presents with acute colitis. Abdominal cramping is better. No nausea, vomiting. Has no further bowel movement. No fever. Abdominal pain is slightly better. REVIEW OF SYSTEMS: Done for constitutional, cardiovascular, GI, pulmonary, relevant findings as above. The patient is seen this morning, was on clear liquids. Review of systems done for constitutional, cardiovascular, GI, pulmonary, relevant findings as above. CURRENT MEDICATIONS: Reviewed that include IV Zosyn and lactated Ringer's. PHYSICAL EXAMINATION: Temperature afebrile, pulse 79, respirations 16, blood pressure 140/90, pulse ox 97% on room air. General appearance: Lying in bed, tired appearing. Eyes pupils are equal. Conjunctivae normal. HEENT external appearance of nose and ears normal. Oral cavity normal. Neck: Cervical collar in place. Respiratory effort normal. LUNGS: Clear. Cardiovascular 1st and 2nd sounds normal. No edema. Abdomen decreased diffuse tenderness. No guarding or rigidity. Soft. Liver and spleen not palpable. Psychiatry alert and oriented times three. Mood and affect is normal. INVESTIGATIONS: CT scan of the abdomen shows colitis on the left side, splenic flexure down and sigmoid diverticulosis. INVESTIGATIONS: White count 7.2, potassium 4.1. ASSESSMENT: 1. Acute left-sided severe colitis, possibly infectious in nature. 2. Sigmoid diverticulosis. 3. Mild dysphagia due to swelling from recent cervical spine surgery. 4. Cervical spine C3-C3, C4 fusion, status post. 5. Mild intermittent asthma stable. Continue the patient on IV antibiotics and IV fluids. Diet to be advanced to full liquids. Care was discussed with the patient. MMODL / IJN: [id number] /
[2017-04-13] MEDS: MORPHINE SULFATE 4 MG/ML SYRINGE IVP PRN ×2 (05:23→12:16)
[2017-04-13] MEDS: PIPERACILLIN-TAZOBACTAM 3.375 GM in DEXTROSE/WATER 1 50ML.BAG IVPB SCH ×2 (07:36→15:12)
[2017-04-13] MEDS: LACTATED RINGERS 1,000 ML IV SCH ×2 (07:36→15:12)
[2017-04-13] MEDS: SYMBICORT 160-4.5 MCG INHALER INHALATION SCH ×2 (07:50→20:08)
[2017-04-13 08:00] VITALS: RESP 16
[2017-04-13 08:30] LABS: Anion Gap 8 mmol/L; Blood Urea Nitrogen 9 mg/dL (9-20); Calcium 9.2 mg/dL (8.4-10.2); Carbon Dioxide 28 mmol/L (22-30); Chloride 103 mmol/L (98-107); Glucose 88 mg/dL (74-99); Potassium 4.2 mmol/L (3.5-5.1); Sodium 139 mmol/L (137-145)
[2017-04-13] MEDS ORDERED: predniSONE 20 MG TAB PO STA (11:10)
--- NOTE | 2017-04-13 12:10 | P.PN ---
Subjective Progress Note Date: 04/13/17 Principal diagnosis: Abdominal pain and rectal bleeding No further bloody bowel movements. Abdominal pain still present but improved. Afebrile. Reports difficulty swallowing without emesis. Tolerating full liquid diet. Objective - Vital Signs Vital signs: Vital Signs Temp 97.5 F L 04/13/17 07:00 Pulse 55 L 04/13/17 07:00 Resp 16 04/13/17 07:00 BP 149/89 04/13/17 07:00 Pulse Ox 97 04/13/17 07:00 Intake & Output 04/12/17 04/13/17 04/13/17 18:59 06:59 18:59 Intake Total 1050 1500 Balance 1050 1500 Intake: IV 1000 1000 Lactated Ringers 1,000 ml 1000 1000 @ 125 mls/hr IV .Q8H ARIEL Rx#:[id number] Intake, IV Titration 50 Amount Piperacillin-Tazobactam 3 50 .375 gm In Dextrose/Water 1 50ml.bag @ 12.5 mls/hr IVPB Q8HR ARIEL Rx#: [id number] Oral 500 Other: # Voids 1 - Exam General appearance: The patient is alert, oriented, in no acute distress. HET: Head is normocephalic and atraumatic. Pupils are equal and reactive. Oropharynx is clear without lesions. Neck: Supple without lymphadenopathy. Trachea midline. Heart: S1 S2. Regular rate and rhythm. Lungs: No crackles or wheezes are heard. Abdomen: Soft, mild midabdominal left-sided tenderness, nondistended with bowel sounds. No peritoneal signs. No palpable organomegaly or masses. Extremities: Normal skin color and turgor. No cyanosis, rash, ulceration, clubbing, or edema. Radial and pedal pulses are 2/4 bilaterally. Neurological: No focal deficits. Strength and sensation are grossly intact. - Labs CBC & Chem 7: 04/12/17 07:48 04/13/17 07:15 Assessment and Plan (1) Abdominal pain Narrative/Plan: 51-year-old male status post recent neck surgery admitted with leukocytosis, acute crampy lower abdominal pain with bloody stools. Possible self-limiting infectious colitis possible inflammatory colitis possible ischemic. Hemoglobin presently 13.9. Current Visit: Yes Status: Acute Code(s): R10.9 - UNSPECIFIED ABDOMINAL PAIN SNOMED Code(s): 30888205 (2) Rectal bleeding Current Visit: Yes Status: Acute Code(s): K62.5 - HEMORRHAGE OF ANUS AND RECTUM SNOMED Code(s): 43541867 (3) Dysphagia Narrative/Plan: Suspect postsurgical in nature edema. Patient was hospitalized a week ago outside facility with similar findings and provided steroids with improvement. Current Visit: Yes Status: Acute Code(s): R13.10 - DYSPHAGIA, UNSPECIFIED SNOMED Code(s): 50132041 Plan: 1. Soft diet/liquid as tolerated. Protein shakes 3 times a day was encouraged. 2. Discharge per medicine. Outpatient colonoscopy advised and scheduled tentatively 05/11/2017 and [facility]. Assessment and plan a care discussed with Dr. Villanueva
[2017-04-13] MEDS: MORPHINE ORAL SOLN 10 MG/5 ML CUP PO PRN (19:28)
--- NOTE | 2017-04-13 21:09 | PN ---
PROGRESS NOTE DATE OF SERVICE: 04/13/2017 PRESENTING COMPLAINT: Abdominal pain. INTERVAL HISTORY: The patient is status post cervical spine surgery, presented with acute colitis, probably infectious. Abdominal cramping is better. Has had no bowel movement. Was advanced to full liquid. The patient is having some trouble with his swallowing as the diet was advanced. I ordered prednisone this morning. at the bedside. He did call his surgeon to let him know. Overall feeling better otherwise. REVIEW OF SYSTEMS: Done for constitutional, cardiovascular, GI, pulmonary, ENT; relevant findings as above. CURRENT MEDICATIONS: Reviewed that include: 1. IV Zosyn. 2. Lactated Ringer's. EXAMINATION: Temperature 97.5, pulse 55, respirations 16, blood pressure 149/89, pulse ox 97% on room air. GENERAL APPEARANCE: Lying in bed, comfortable. EYES: Pupils equal. Conjunctivae normal. HEENT: External nose and ears normal. Oral cavity normal. NECK: Cervical collar in place. RESPIRATORY: Effort normal. Lungs are clear. CARDIOVASCULAR: First and second sounds normal. No edema. ABDOMEN: Decreased tenderness. No guarding or rigidity. Soft. Liver and spleen not palpable. PSYCHIATRY: Alert and oriented x3. Mood and affect normal. INVESTIGATIONS: Potassium 4.2, BUN and creatinine are normal. ASSESSMENT: 1. Acute left-sided severe colitis, probably infectious in nature with clinical improvement. 2. Sigmoid diverticulosis. 3. Mild dysphagia due to swelling from recent cervical spine surgery. 4. Cervical spine C3-C5 fusion. 5. Mild intermittent asthma, stable. PLAN: Care was discussed with the patient and . The patient will be kept on a full liquid diet for right now. Oral prednisone has been added. Will keep on 40 mg. Hopefully patient can be discharged tomorrow. MMODL / IJN: [id number] /
[2017-04-14] MEDS: PIPERACILLIN-TAZOBACTAM 3.375 GM in DEXTROSE/WATER 1 50ML.BAG IVPB SCH ×2 (00:53→07:28)
[2017-04-14 07:23] VITALS: BP 138/83; PULSE 58; TEMP 96.4
[2017-04-14] MEDS: MORPHINE ORAL SOLN 10 MG/5 ML CUP PO PRN ×2 (07:27→11:21)
[2017-04-14] MEDS: SYMBICORT 160-4.5 MCG INHALER INHALATION SCH (08:24)
[2017-04-14 08:58] LABS: Basophils % (A) 0 %; Eosinophils # (A) 0.2 k/uL (0-0.7); Eosinophils % (A) 2 %; HCT 41.1 % (39.0-53.0); HGB 13.4 gm/dL (13.0-17.5); Lymphocytes # (A) 2.2 k/uL (1.0-4.8); Lymphocytes % (A) 18 %; MCH 29.2 pg (25.0-35.0); MCHC 32.7 g/dL (31.0-37.0); MCV 89.3 fL (80.0-100.0); Mean Platelet Volume 7.2; Monocytes # (A) 0.6 k/uL (0-1.0); Monocytes % (A) 5 %; Neutrophils # (A) 9.5 k/uL (1.3-7.7); Neutrophils % (A) 75 %; Platelet Count 296 k/uL (150-450); RDW 12.8 % (11.5-15.5); WBC 12.6 k/uL (3.8-10.6)
[2017-04-14] MEDS ORDERED: methylPREDNISolone 4 MG TAB PO SCH (09:00)
[2017-04-14 09:08] LABS: Anion Gap 12 mmol/L; Blood Urea Nitrogen 11 mg/dL (9-20); Calcium 9.8 mg/dL (8.4-10.2); Carbon Dioxide 27 mmol/L (22-30); Chloride 103 mmol/L (98-107); Glucose 132 mg/dL (74-99); Potassium 3.8 mmol/L (3.5-5.1); Sodium 142 mmol/L (137-145)
--- NOTE | 2017-04-17 00:10 | DS ---
DISCHARGE SUMMARY DATE OF ADMISSION: 04/12/2017 DATE OF DISCHARGE: 04/14/2017 FINAL DIAGNOSES: 1. Acute left below neck severe colitis, probably infectious, present on admission. 2. Sigmoid diverticulosis. 3. Mild dysphagia due to swelling from recent cervical spine surgery, improving. 4. Cervical spine C3-C5 fusion recently. 5. Mild intermittent asthma. CONSULTATION: 1. Dr. Gonzalez from Pulmonary. 2. Dr. Que Villanueva from GI. HOSPITAL COURSE: This very pleasant 51-year-old patient of Dr. Baker just a week prior to coming into the hospital had a cervical spine fusion at [facility] by Dr. Ni. The patient was readmitted there on Monday because of trouble swallowing. Discharged on steroids. The patient presented with increasing abdominal pain, cramping, bloody stools. CT scan did confirm a colitis on the left side. Responded well to antibiotics and making the patient n.p.o. By the time of discharge, the patient is tolerating a diet, feeling better. Dr. Gonzalez from Pulmonary was seeing the patient for airway management. Asthma was stable. The patient's oral intake was improving. On examination, abdomen soft nontender, afebrile. The patient had been put on a steroid taper dose and patient did contact the office of Dr. Ni. Care had been discussed with the patient in detail. On examination abdomen soft, nontender. Bowel sounds present and lungs fair entry. DISCHARGE MEDICATIONS: 1. ProAir 2 puffs q.4 p.r.n. 2. [place] 10 one tab q.6h p.r.n. 3. Robaxin 750 mg q.8. 4. Zofran 4 mg q.8h p.r.n. 5. Augmentin 875 1 tab p.o. q.12 fourteen tablets. 6. Medrol Dosepak. DIET: Soft and advance as tolerated. FOLLOWUP: 1. Follow up with Dr. Baker in 1 week. 2. Follow up with Dr. Que Villanueva in 10 days. 3. The patient has an appointment to see Dr. Ni, his neurosurgeon as scheduled. MMODL / IJN: [id number] /
== END 2017-04-14 14:51 | disposition home or self-care (01) | DRG 392 ==
LOC: EC 18:06 → UNDOADMIN 21:44 → 4MS4W 21:44 → OBSVTOIN 04-12 11:40
PROVIDERS: ADMIT Hospitalist; ATTEND Hospitalist
DX: A09 Infectious gastroenteritis and colitis, unspecified (principal); R13.10 Dysphagia, unspecified; K62.5 Hemorrhage of anus and rectum; K57.30 Diverticulosis of large intestine without perforation or abscess without bleeding; J45.20 Mild intermittent asthma, uncomplicated; F17.200 Nicotine dependence, unspecified, uncomplicated; Z79.899 Other long term (current) drug therapy; Z98.1 Arthrodesis status; Z87.01 Personal history of pneumonia (recurrent)
CPT/HCPCS: 36415; 74019; 74176; 80048; 80053; 82272; 85025; 85610; 85730; 96360; 96361; 99285

== ENCOUNTER 2017-07-12 06:08 | Day surgery (SDC) | payer OTHER ==
[2017-07-06 15:41] VITALS: BMI 26.4
[~2017-07-12 06:08] MED LIST: LACTATED RINGERS 1,000 ML IV SCH
[2017-07-12 06:37] VITALS: RESP 18; TEMP 98
[2017-07-12] MEDS ORDERED: LACTATED RINGERS 1,000 ML IV ONE (06:40)
[2017-07-12] MEDS ORDERED: LIDOCAINE 1% 20 ML VIAL (10MG/ML) FOR IV START INTRADERMA ONE (06:40)
[2017-07-12] MEDS ORDERED: PROPOFOL 10 MG/ML 20 ML VIAL IV ONE (07:39)
[2017-07-12] MEDS ORDERED: MIDAZOLAM 2 MG/2 ML VIAL ONE (07:39)
--- NOTE | 2017-07-12 07:54 | P.PCN ---
Date of Procedure: 07/12/17 Procedure(s) Performed: BRIEF HISTORY: Patient is a 52-year-old pleasant white male, scheduled for an elective colonoscopy as a part of evaluation of intermittent rectal bleeding and change in bowel habits for the last 6 months duration. PROCEDURE PERFORMED: Colonoscopy. PREOPERATIVE DIAGNOSIS: Intermittent rectal bleeding/change in bowel habits. IV sedation per Anesthesia. PROCEDURE: After informed consent was obtained, the patient, was brought into the endoscopy unit. IV sedation was administered by Anesthesia under continuous monitoring. Digital rectal examination was normal. Initially the Olympus CF- 160 flexible video colonoscope was then inserted in the rectum, gradually advanced into the cecum without any difficulty. Careful examination was performed as the scope was gradually being withdrawn. Ileocecal valve and the appendiceal orifice were visualized and appeared normal. Prep was excellent. Mucosa of the cecum, ascending colon, transverse colon, descending colon, sigmoid colon, and rectum appeared normal. Scattered diffuse diverticula seen in the left colon. Retroflexion was performed in the rectum and small internal hemorrhoids were seen. The patient tolerated the procedure well. IMPRESSION: Scattered diffuse diverticulosis. Small internal hemorrhoids. RECOMMENDATIONS: Findings of this examination were discussed with the patient as well as his family. He was advised to be a high-fiber diet, take fiber supplements a regular basis. He can have a repeat screening colonoscopy in 10 years.
[2017-07-12 08:20] VITALS: BP 141/80; PULSE 77
--- NOTE | 2017-07-15 15:05 | CDI ---
Outpatient Documentation Clarification Form Date: 07/15/17 CDS/Biomedical Engineering Supervisor Name: Saniya Urbina Phone: If any questions, call Georgina Mejia Test Bore Helper at [phone] Patient Name: Lew Morris Admit Date: 07/12/17 Discharge Date: 07/12/17 ATTENTION: The [facility] Coding Staff appreciate your assistance in clarifying documentation. Please respond to the clarification below the line at the bottom and electronically sign. The [facility] Coding staff will review the response and follow-up if needed. Please note: Queries are made part of the Legal Health Record. If you have any questions, please contact the Test Bore Helper. Dear Dr. Villanueva, What is the cause of the rectal bleeding? Our coding resources state that when rectal bleeding is documented along with hemorrhoids, the physician must be queried to determine whether the rectal bleeding is secondary to the hemorrhoids, or incidental. Thank you for your kind consideration. MTDD
--- NOTE | 2017-07-31 11:04 | CDI ---
Outpatient Documentation Clarification Form Date: 07/15/17 CDS/Fourth Officer Name: Saniya Urbina Phone: If any questions, call Georgina Mejia Guitar Technician at [phone] Patient Name: Lew Morris Admit Date: 07/12/17 Discharge Date: 07/12/17 ATTENTION: The [facility] Coding Staff appreciate your assistance in clarifying documentation. Please respond to the clarification below the line at the bottom and electronically sign. The [facility] Coding staff will review the response and follow-up if needed. Please note: Queries are made part of the Legal Health Record. If you have any questions, please contact the Guitar Technician. Dear Dr. Villanueva, What is the cause of the rectal bleeding? Our coding resources state that when rectal bleeding is documented along with hemorrhoids, the physician must be queried to determine whether the rectal bleeding is secondary to the hemorrhoids, or incidental. Thank you for your kind consideration. __ Bleeding likely from internal hemorrhoids. Dr.K Villanueva MTDD
== END 2017-07-12 08:43 | disposition home or self-care (01) ==
LOC: ORWHC2ENDO 06:08
PROVIDERS: ATTEND Internal Medicine Gastroenterology
DX: K64.8 Other hemorrhoids (principal); K57.30 Diverticulosis of large intestine without perforation or abscess without bleeding; F17.210 Nicotine dependence, cigarettes, uncomplicated; Z79.1 Long term (current) use of non-steroidal anti-inflammatories (NSAID); Z79.899 Other long term (current) drug therapy
CPT/HCPCS: 45378; J2250; J2704

== ENCOUNTER → 2018-05-21 | Outpatient (CLI) | payer OTHER ==
--- NOTE | 2018-05-22 08:58 | CT ---
EXAMINATION TYPE: CT chest w con DATE OF EXAM: 05/21/2018 COMPARISON: 06/22/2015 HISTORY: Solitary pulmonary nodule. CT DLP: 562 mGycm. Automated Exposure Control for Dose Reduction was Utilized. TECHNIQUE: CT scan of the thorax is performed following with IV Contrast, patient injected with 100m l mL of Isovue 300. FINDINGS: LUNGS: There is a calcified benign granuloma in the left lower lobe anteriorly. The previously seen a pproximately 2 mm solid pulmonary nodule on series 4 image 15 is unchanged from the prior of 6 and should be considered benign. No new suspicious pulmonary nodules or masses are appreciated. The lungs are grossly clear, there is no concerning parenchymal mass or nodule identified. There is no pleural effusion or pneumothorax seen. The tracheobronchial tree is patent. MEDIASTINUM: There are no greater than 1 cm hilar or mediastinal lymph nodes. No pericardial effusi on is seen. Few coronary artery calcifications are evident. Ascending thoracic aorta is stable in si ze measuring approximately 3.6 cm and is nonaneurysmal. OTHER: Mild degree hepatic steatosis is incidentally noted. Mild multilevel degenerative changes of t he spine. Very small hiatal hernia seen on the prior is not well appreciated on today's exam. IMPRESSION: 1. Benign left basilar calcified pulmonary granuloma and benign 2 mm right apical pulmonary nodule thao th stable compared to the prior of 06/22/2015. 2. Mild degree hepatic steatosis.
== END ==
LOC: RADCTMAIN 16:17
PROVIDERS: ATTEND Physician Assistant
DX: R91.1 Solitary pulmonary nodule (principal); J98.4 Other disorders of lung
CPT/HCPCS: 71260; Q9967

== ENCOUNTER → 2023-11-21 | Outpatient (CLI) | payer OTHER ==
[2023-11-21 13:00] LABS: Partial Thromboplastin Time 24.6 sec (22.0-30.0); Prothrombin Time 10.7 sec (10.0-12.5)
[2023-11-21 15:21] LABS: ALT 28 U/L (10-49); AST 20 U/L (14-35); Albumin 4.6 g/dL (3.8-4.9); Albumin/Globulin Ratio 1.92 Ratio (1.60-3.17); Alkaline Phosphatase 61 U/L (41-126); BUN/Creat Ratio 18.33 Ratio (12.00-20.00); Blood Urea Nitrogen 16.5 mg/dL (9.0-27.0); Calcium 9.8 mg/dL (8.7-10.3); Carbon Dioxide 25.6 mmol/L (21.6-31.8); Chloride 103 mmol/L (96-109); Globulin 2.4 g/dL (1.6-3.3); Glucose 109 mg/dL (70-110); Potassium 4.9 mmol/L (3.5-5.5); Sodium 141 mmol/L (135-145); Total Bilirubin 0.5 mg/dL (0.3-1.2)
[2023-11-21 15:31] LABS: HCT 44.6 % (39.6-50.0); MCH 31.4 pg (27.0-32.0); MCHC 33.6 g/dL (32.0-37.0); MCV 93.5 FL (80.0-97.0); NRBC Per 100 WBC 0 X 10*3/uL (0.00-0.01); Platelet Count 284 X 10*3/uL (140-440); RBC 4.77 X 10*6/uL (4.40-5.60); RDW 12.5 % (11.5-14.5); WBC 6.65 X 10*3/uL (4.50-10.00)
== END | disposition home or self-care (01) ==
LOC: LABPAT 11:53
PROVIDERS: ATTEND Orthopaedic Surgery
DX: Z01.818 Encounter for other preprocedural examination (principal); Z22.322 Carrier or suspected carrier of Methicillin resistant Staphylococcus aureus
CPT/HCPCS: 80053; 85027; 85610; 85730; 93005

== ENCOUNTER 2023-12-05 05:32 | Day surgery (SDC) | payer OTHER ==
[~2023-12-05 05:32] MED LIST changes: -LACTATED RINGERS 1,000 ML IV SCH; +TRANEXAMIC 1,000 MG/100ML-NACL 1,000 MG in SALINE 1 100ML.BAG IVPB PRN
[2023-12-05] MEDS ORDERED: LIDOCAINE 1% (10MG/ML) FOR IV START INTRADERMA PRN (05:46)
[2023-12-05] MEDS: IV FLUID CONTINUATION 1,000 ML IV ONE ×2 (05:55→12:13)
[2023-12-05] MEDS: LACTATED RINGERS 1,000 ML IV SCH (06:15)
[2023-12-05] MEDS: ACETAMINOPHEN TAB 500 MG TAB PO PRN (06:21)
[2023-12-05] MEDS: GABAPENTIN 300 MG CAP PO PRN (06:21)
[2023-12-05] MEDS: MELOXICAM 7.5 MG TAB PO PRN (06:21)
[2023-12-05] MEDS: DEXAMETHASONE SOD PHOSPHATE 4 MG/ML 1 ML VIAL IV ONE (06:22)
[2023-12-05] MEDS: ONDANSETRON 4 MG/2 ML VIAL IVP ONE (06:22)
[2023-12-05] MEDS: MIDAZOLAM 2 MG/2 ML VIAL IV PRN (06:27)
[2023-12-05] MEDS ORDERED: DEXAMETHASONE SOD PHOSPHATE 4 MG/ML 1 ML VIAL ONE (06:55)
[2023-12-05] MEDS ORDERED: fentaNYL (PF) 50 MCG/ML 2 ML AMP ONE (06:55)
[2023-12-05] MEDS ORDERED: PROPOFOL 10 MG/ML 20 ML VIAL IV ONE (06:55)
[2023-12-05] MEDS ORDERED: PHENYLEPHRINE-0.9% NACL SYG 1,000 MCG/10 ML SYRINGE ONE (06:55)
[2023-12-05] MEDS ORDERED: MIDAZOLAM 2 MG/2 ML VIAL ONE (06:55)
[2023-12-05] MEDS ORDERED: SUCCINYLCHOLINE CHLORIDE 200 MG/10 ML VIAL IV ONE (06:55)
[2023-12-05] MEDS ORDERED: ROCURONIUM 10 MG/ML (5 ML VIAL) IV ONE (06:55)
[2023-12-05] MEDS ORDERED: HYDROmorphone (PF) 1 MG/ML ONE (06:55)
[2023-12-05] MEDS ORDERED: NEOSTIGMINE 1 MG/ML 10 ML VIAL ONE (06:55)
[2023-12-05] MEDS ORDERED: GLYCOPYRROLATE 0.2 MG/ML 2 ML VIAL ONE (06:55)
[2023-12-05] MEDS ORDERED: TRANEXAMIC 1,000 MG/100ML-NACL PREMIX BAG ONE (06:55)
[2023-12-05] MEDS ORDERED: ROPIVACAINE 5 MG/ML 30 ML VIAL ONE (06:55)
[2023-12-05] MEDS ORDERED: LIDOCAINE 1% INJ 10MG/ML (20 ML MDV) ONE (06:55)
[2023-12-05] MEDS: ceFAZolin 1,000 MG in SODIUM CHLORIDE 0.9% 1,000 ML IRRIGATION ONE (07:00)
[2023-12-05] MEDS ORDERED: fentaNYL (PF) 50 MCG/ML 2 ML AMP IVP PRN (07:00)
[2023-12-05] MEDS ORDERED: fentaNYL (PF) 50 MCG/ML 2 ML AMP IV PRN (07:00)
--- NOTE | 2023-12-05 07:25 | P.ANPRN ---
Procedure Note - Anesthesia - Nerve Block Performed Right iPack Single Time Out Performed: Yes Date of Procedure: 12/05/23 Procedure Start Time: Procedure Stop Time: Location of Patient: PreOp Indication: Acute Post-Operative Pain, Analgesia, Requested by Surgeon Sedation Type: Sedate with meaningful contact maintained Preparation: Sterile Prep Position: Left Lateral Catheter: None Needle Types: Pajunk Needle Gauge: 21 Ultrasound used to visualize needle placement: Yes Ultrasound used to observe medication spread: Yes Injectate: 0.5% Ropivacaine (see comment for volume) (Ropiv 20ml+[id number]) Blood Aspirated: No Pain Paresthesia on Injection Noted: No Resistance on Injection: Normal Image Stored and Saved: Yes Events: Uneventful and Well Tolerated
--- NOTE | 2023-12-05 07:26 | P.ANPRN ---
Procedure Note - Anesthesia - Nerve Block Performed Right Adductor Canal Infusion Time Out Performed: Yes Date of Procedure: 12/05/23 Procedure Start Time: : Procedure Stop Time: 06:36 Location of Patient: PreOp Indication: Acute Post-Operative Pain, Analgesia, Requested by Surgeon Sedation Type: Sedate with meaningful contact maintained Preparation: Sterile Prep Position: Supine Catheter: Indwelling Needle Types: On-Q Ultrasound used to visualize needle placement: Yes Ultrasound used to observe medication spread: Yes Injectate: 0.5% Ropivacaine (see comment for volume) (Ropiv 20ml+Decadron 4mg) Blood Aspirated: No Pain Paresthesia on Injection Noted: No Resistance on Injection: Normal Image Stored and Saved: Yes Events: Uneventful and Well Tolerated
--- NOTE | 2023-12-05 08:06 | P.OP ---
Date of Procedure: 12/05/23 Preoperative Diagnosis: Severe osteoarthritis right knee Postoperative Diagnosis: Severe osteoarthritis right knee Procedure(s) Performed: Right total knee arthroplasty Implants: [employer] Journey II CR Oxinium cruciate retaining femoral component size 7, right [employer] Journey nonporous tibial baseplate size 6, right [employer] Journey II, XLPE Deep Dished articular insert, size13 mm, Size 5- 6, right [employer] Lu II resurfacing patellar component, oval, 35 mm All components were cemented using Palacos R bone cement The articulation is Oxinium on polyethylene Anesthesia: CADENCE Surgeon: Shane Thomas Technical Systems Architect #1: Kimberley Limon Estimated Blood Loss (ml): 30 Pathology: none sent Condition: stable Disposition: PACU Indications for Procedure: The patient's knee is end-stage, and conservative management has failed. The operation of knee replacement has been discussed at length in the office, as well as potential risks and complications. These are inclusive of, but not l imited to: Infection, bleeding, scarring, discomfort, stiffness, blood vessel and nerve damage, need for further surgery, failure to relieve symptoms, persistence, recurrence, or worsening of problems, loosening, dislocation, wear, blood clot, pulmonary embolism, , gait dysfunction, stiffness, and other risks as discussed in the office. Patient elects to proceed and the consent form has been signed. Operative Findings: The operative findings are consistent with severe osteoarthritis of the right knee Description of Procedure: The patient was seen in the preoperative area, the consent was reviewed and the operative site was marked with a skin marker. The patient verified the procedure and the operative site. An adductor canal pain catheter and an iPACK block were placed by anesthesia in the preoperative area. The patient was then brought to the operating room and positioned on the operating room table in the supine position. Preoperative antibiotics and a gram of tranexamic acid were given intravenously. A general anesthetic was administered by the anesthesia department. Care was taken to make sure that all pressure points were adequately padded. A tourniquet was placed on the upper thigh and the lower extremity was prepped with ChloraPrep and draped in usual sterile fashion. A universal time-out was then performed which confirmed the patient's name, surgical site, ALLERGIES, and consent. The lower extremity was then exsanguinated and tourniquet was inflated to 250 mmHg. A standard anterior midline approach to the knee was performed. The skin and subcutaneous tissue were sharply dissected down to the patellar tendon. A medial parapatellar arthrotomy was then performed. The knee was then extended, the patellar was everted, and the knee was flexed. The infra-patellar fat pad was removed in order to enhance exposure. The anterior horns of both menisci were excised, and a release was performed to the posterior medial aspect of the knee. On gross visual inspection, there was complete loss of articular cartilage in the medial and patellofemoral joint spaces. There was also significant cartilage damage in the lateral compartment. There were multiple periarticular osteophytes globally about the knee which were then removed with a Ronguer. The femoral canal was then opened with the 9.5 mm intramedullary drill. The 8 mm intramedullary marin was then inserted into the femoral canal with the distal femoral cutting guide set for 5 of valgus. The distal femoral cutting block was then pinned in place. The intramedullary marin was then removed, and the distal femur was then cut. The cutting block was then removed and the cut was checked for symmetry. The resected bone was then measured to confirm the appropriate distal femoral resection. Next, the sizing guide was then placed and set for 3 external rotation based off of the epicondylar axis and Gallatin's line. Pins were then placed and the drill holes, and the femur was sized with the sizing stylus. The pins were then removed, and the sizing guide was then removed. The spikes of the appropriate size femoral block was then placed into the predrilled holes, and malleted into place. Two 45 mm pins were then placed into the fixation holes on the cutting block. An leonidas wing was then used to ensure there would be no notching with the anterior cut. The anterior condyles were cut without notching. The anterior chord cut was then performed, followed by the posterior cut, posterior chamfer cut, and the anterior chamfer cut. The collateral ligaments were protected during the entire process. The cutting block was then removed. Any remaining bone and osteophytes were removed from the femur with a Ronguer. Attention was then directed to the tibia. The remaining ACL was removed with a Ronguer, and the tibia was then gently subluxed forward with a large bent knee retractor. Any remaining menisci were excised. The posterior lateral corner was cauterized in order to coagulate the lateral geniculate artery. The extra medullary tibial cutting guide was then placed, set for the appropriate rotation, slope, and depth of resection. The proximal tibia cutting guide was then pinned in place. Proximal tibia was then cut and sized. A curved osteotome was then used to remove any posterior osteophytes from the distal femur. The femoral trial was placed. A narrow saw blade was then used to remove the anterior intracondylar femoral bone. The CR notch trial was then placed. The tibial trial was placed with the appropriate-sized insert. The knee was able to fully extend and flex to 130 and was stable throughout all range of motion. The knee was then extended and the patella was everted. Patella was then measured, and then using an osteotomy guide, the patella was cut at the appropriate level. The patellar component was sized. The patellar drill guide was placed and the patella was drilled. The patella trial was then placed. The knee was then taken through range of motion with the patella trial and the patella tracked normally using the no thumbs technique. The patella trial was then removed. The knee was then flexed and lug holes were drilled through the femoral trial and the femoral trial was then removed. The tibial was then re- exposed, and the tibial broach guide was then pinned in place after it was set for the appropriate rotation to allow for the most coverage without overhang. The tibia was then reamed and broached. The femoral canal was plugged with autologous bone. The cut surfaces of bone were then irrigated with pulsatile lavage. The knee was also irrigated with Irrisept solution. The components were then opened, the cement was mixed. Cement was placed on the backside of the femoral, tibial, and patellar components. Cement was then applied to the tibial surface and pressurized into the surface using finger pressurization technique. The tibial component was then applied and excess cement was removed after it was impacted securely noted to be flush with the cut surface. In similar fashion, the cement was applied to the cut femoral surface, p ressurized and using finger pressurization the component was impacted in place. Excess cement was removed. The polyethylene spacer was then implanted and locked into position. Patellar component was then applied in a similar technique and the patellar clamp was used to hold patella in place while the cement hardened. The knee was held in full extension while the cement hardened. Once the cement had fully hardened, the knee was reinspected. Any other cement extrusion was removed the final range of motion testing showed range of motion from 0-130 with excellent stability, both medial and laterally and appropriate alignment of the leg. Patella tracked normally. After the cemented hardened, the tourniquet was released and hemostasis was obtained. A second gram of transexamic acid was given intravenously. The knee was again irrigated. The knee was again taken through range of motion and found to be stable throughout all range of motion of 0-130, and the patella tracked normally. The fascia was then closed with 0 Vicryl followed by #2 strata fix suture. The subcutaneous tissue was closed with 3-0 Vicryl and 3-0 strata fix. Exofin glue was used for the skin and placed with the knee in flexion. After the glue had dried, and Optafoam silver impregnated dressing was applied. A lightly compressive dressing was applied using web roll and Feliciano wrap. Patient was then transferred to the stretcher and taken to recovery room in stable condition. Sponge and needle counts were correct. The marketing communications assistant CHELSY Byrd was required due the complexity surgery and the need for a skilled surgical asst. She assisted in positioning, draping, retraction, and closure of the wound.
[2023-12-05] MEDS ORDERED: HYDROmorphone 0.5 MG/0.5 ML SYRINGE IVP PRN ×2 (08:36)
[2023-12-05] MEDS ORDERED: bisacodyL 10 MG SUPP RECTAL PRN (08:36)
[2023-12-05] MEDS ORDERED: NALOXONE 0.4 MG/ML 1 ML VIAL IV PRN (08:36)
[2023-12-05] MEDS ORDERED: HYDROmorphone 1 MG/ML 1 ML SYRINGE IVP PRN (08:36)
[2023-12-05] MEDS ORDERED: ONDANSETRON 4 MG/2 ML VIAL IVP PRN (08:36)
[2023-12-05] MEDS ORDERED: NA PHOS,M-B/NA PHOS,DI-BA 133 ML ENEMA RECTAL PRN (08:36)
[2023-12-05] MEDS ORDERED: MAGNESIUM HYDROXIDE 2,400 MG/30 ML CUP PO PRN (08:36)
[2023-12-05] MEDS ORDERED: HYDROcodone/APAP 7.5-325MG 1 EACH TAB PO PRN (08:38)
[2023-12-05 08:43] VITALS: TEMP 97.4
[2023-12-05] MEDS ORDERED: SODIUM CHLORIDE 0.9% 1,000 ML IV SCH (08:45)
[2023-12-05] MEDS: LACTATED RINGERS 1,000 ML IV ONE (08:46)
[2023-12-05] MEDS: HYDROmorphone 0.5 MG/0.5 ML SYRINGE IVP PRN (08:58)
[2023-12-05] MEDS: ROPIVACAINE 1,100 MG, SODIUM CHLORIDE 0.9% 500 ML 330 ML, EMPTY PAIN BALL 1 EACH MISCELLANE PRN (09:00)
--- NOTE | 2023-12-05 11:24 | XR ---
EXAMINATION TYPE: XR knee limited RT DATE OF EXAM: 12/05/2023 CLINICAL HISTORY: Postoperative evaluation Two views of the right knee are submitted. Identified are changes of total knee arthroplasty with femoral and tibial components appearing well seated. Postsurgical soft tissue changes are noted. Alignment is anatomic. [facility], , 12/05/2023 11:21 AM
[2023-12-05] MEDS: HYDROcodone/APAP 7.5-325MG 1 EACH TAB PO PRN (11:42)
[2023-12-05 12:11] VITALS: RESP 16
[2023-12-05 13:15] VITALS: BP 152/88; PULSE 83
[2023-12-05] MEDS: ONDANSETRON ODT 4 MG TAB PO STA (13:51)
[2023-12-05] MEDS ORDERED: SENNOSIDES-DOCUSATE SODIUM 1 EACH TAB PO SCH (21:00)
[2023-12-05] MEDS ORDERED: ASPIRIN 325 MG TAB PO SCH (21:00)
== END 2023-12-05 13:56 | disposition home health service (06) ==
LOC: OR 05:32
PROVIDERS: ATTEND Orthopaedic Surgery
CPT/HCPCS: 64448; 64999

== ENCOUNTER 2024-01-01 13:51 | Emergency (ER) | payer OTHER ==
[2024-01-01 13:57] VITALS: TEMP 98.1
--- NOTE | 2024-01-01 14:37 | ED ---
Extremity Problem HPI - General Source: patient, RN notes reviewed Mode of arrival: ambulatory Limitations: no limitations <Natasha Collins - Last Filed: 01/01/24 14:36> - General Source: patient, RN notes reviewed Limitations: no limitations <Alfonso Reyes - Last Filed: 01/01/24 19:00> - General Chief complaint: Extremity Problem,Nontraumatic Stated complaint: Leg pain Time Seen by Provider: 01/01/24 14:09 - History of Present Illness Initial comments: Quick [id number] male presenting to the emergency department with referral from physical therapy with concern for a right lower extremity DVT. States that about 2 days ago he began to experience pain, swelling, redness to his right lower leg. Patient had total knee replacement about 4 weeks ago. He denies history of DVT or PE. Denies chest pain, shortness of breath, heart palpitations, dizziness or lightheadedness. (Natasha Collins) Patient is a 58-year-old male present to the emergency department with concern for right knee and leg pain. Patient had surgery 4 weeks ago. When he remove the dressing 3 weeks ago there was some redness on the lateral portion with some purulent drainage. Patient was placed on antibiotics. Over the past 2 to 3 days, patient has had increased swelling mostly at the knee however also at the lower leg. There is discomfort throughout. No fever. No redness. No warmth. Patient was at physical therapy today and they called orthopedics who recommended patient come to the emergency department for ultrasound. (Alfonso Reyes) - Related Data Home Medications Medication Instructions Recorded Confirmed Albuterol Inhaler [Ventolin Hfa 1 - 2 puff INHALATION RT-Q6H PRN 07/06/17 01/01/24 Inhaler] Multivitamin [Multivitamins Adult 1 tab PO DAILY 11/28/23 01/01/24 Gummies] Previous Rx's Medication Instructions Recorded Aspirin 325 mg PO BID #60 tab 12/05/23 Allergies Allergy/AdvReac Type Severity Reaction Status Date / Time No Known Allergies Allergy Verified 01/01/24 17:23 Review of Systems ROS Other: All systems not noted in ROS Statement are negative. <Natasha Collins - Last Filed: 01/01/24 14:36> ROS Other: All systems not noted in ROS Statement are negative. Constitutional: Denies: fever Eyes: Denies: eye pain ENT: Denies: ear pain Respiratory: Denies: cough Cardiovascular: Denies: chest pain Endocrine: Denies: fatigue Gastrointestinal: Denies: abdominal pain Musculoskeletal: Reports: as per HPI. Denies: back pain Skin: Denies: rash <Alfonso Reyes - Last Filed: 01/01/24 19:00> ROS Statement: Those systems with pertinent positive or pertinent negative responses have been documented in the HPI. Past Medical History Past Medical History: Asthma, GI Bleed History of Any Multi-Drug Resistant Organisms: None Reported Past Surgical History: Orthopedic Surgery Additional Past Surgical History / Comment(s): right knee and hand, neck surgery, fusion C3-4 Past Anesthesia/Blood Transfusion Reactions: Previous Problems w/ Anesthesia Additional Past Anesthesia/Blood Transfusion Reaction / Comment(s): "HARD TIME WAKING UP" Past Psychological History: No Psychological Hx Reported Past Alcohol Use History: Occasional Past Drug Use History: None Reported - Past Family History Mother Family Medical History: No Reported History <Natasha Collins - Last Filed: 01/01/24 14:36> General Exam Limitations: no limitations <Natasha Collins - Last Filed: 01/01/24 14:36> Limitations: no limitations General appearance: alert, in no apparent distress Head exam: Present: normocephalic Eye exam: Present: normal appearance Neck exam: Present: normal inspection Respiratory exam: Present: normal lung sounds bilaterally Cardiovascular Exam: Present: regular rate, normal rhythm Expanded Peripheral pulses: 2+: Posterior Tibialis (R), Dorsalis Pedis (R) GI/Abdominal exam: Present: soft. Absent: tenderness Extremities exam: Present: tenderness (Moderate right knee effusion with diffuse tenderness. No erythema or warmth. Mild swelling and discomfort of the lower leg), normal capillary refill, calf tenderness (Right-sided, mild) Neurological exam: Present: alert Psychiatric exam: Present: normal affect, normal mood Skin exam: Present: normal color. Absent: rash, erythema <Alfonso Reyes - Last Filed: 01/01/24 19:00> - General Exam Comments Initial Comments: Visual Physical Exam Vital signs reviewed General: Well-appearing, nontoxic, no acute distress. Head: Normocephalic, atraumatic Eyes: PERRLA, EOMI ENT: Airway patent Chest: Nonlabored breathing Skin: No visual rash, normal skin tone Neuro: Alert and oriented 3 Musculoskeletal: No gross abnormalities (Natasha Collins) Course Vital Signs 01/01/24 01/01/24 01/01/24 13:55 17:55 18:45 Temperature 98.1 F Pulse Rate 72 75 80 Respiratory 16 18 18 Rate Blood Pressure 162/117 170/104 160/93 O2 Sat by Pulse 99 98 99 Oximetry Medical Decision Making <Natasha Collins - Last Filed: 01/01/24 14:36> - Lab Data Result diagrams: 01/01/24 17:25 01/01/24 17:25 <Alfonso Reyes - Last Filed: 01/01/24 19:00> - Medical Decision Making I completed the quick note portion of this chart signed Natasha Collins PA-C (Natasha Collins) Was pt. sent in by a medical professional or institution (CHELSY Winslow, ENVIRONMENTAL FIELD OFFICE MANAGER, urgent care, hospital, or snf...) When possible be specific @ -No Did you speak to anyone other than the patient for history (EMS, parent, family, police, friend...)? What history was obtained from this source @ -No Did you review nursing and triage notes (agree or disagree)? Why? @ -I reviewed and agree with nursing and triage notes Were old charts reviewed (outside hosp., previous admission, EMS record, old EKG, old radiological studies, urgent care reports/EKG's, snf records)? Report findings @ -No old charts were reviewed Differential Diagnosis (chest pain, altered mental status, abdominal pain women, abdominal pain men, vaginal bleeding, weakness, fever, dyspnea, syncope, headache, dizziness, GI bleed, back pain, seizure, CVA, palpatations, mental health, musculoskeletal)? @ -Differential Musculoskeletal Muscular strain, contusion, ligament sprain, fracture, arthritis, septic arthritis, bursitis, cellulitis, muscle spasm, nerve compression, DVT, arterial occlusion, herpes zoster, electrolyte abnormality, tumor.... This is not meant to be in all inclusive list EKG interpreted by me (3pts min.). @ -As above X-rays interpreted by me (1pt min.). @ -X-ray does not reveal acute abnormality. Postoperative changes CT interpreted by me (1pt min.). @ -None done U/S interpreted by me (1pt. min.). @ -Ultrasound negative for DVT What testing was considered but not performed or refused? (CT, X-rays, U/S, labs)? Why? @ -None What meds were considered but not given or refused? Why? @ -None Did you discuss the management of the patient with other professionals (professionals i.e. Dr., PA, ENVIRONMENTAL FIELD OFFICE MANAGER, lab, RT, psych nurse, geriatric social worker, old testament professor, teacher, escrow officer, bilingual case manager)? Give summary @ -Case discussed with Sapna with orthopedics who did discuss the case with Dr. Humphrey. They do not want arthrocentesis to be done at this time. Patient to be discharged and follow-up this week. Was smoking cessation discussed for >3mins.? @ -No Was critical care preformed (if so, how long)? @ -No Were there social determinants of health that impacted care today? How? (Homelessness, low income, unemployed, alcoholism, drug addiction, transportation, low edu. Level, literacy, decrease access to med. care, senior care, rehab)? @ -No Was there de-escalation of care discussed even if they declined (Discuss DNR or withdrawal of care, Hospice)? DNR status @ -No What co-morbidities impacted this encounter? (DM, HTN, Smoking, COPD, CAD, Cancer, CVA, ARF, Chemo, Hep., AIDS, mental health diagnosis, sleep apnea, morbid obesity)? @ -None Was patient admitted / discharged? Hospital course, mention meds given and route, prescriptions, significant lab abnormalities, going to OR and other pertinent info. @ -Patient presents with knee effusion. No obvious signs of infection. No fever, no elevated white blood cell count or CRP, no significant warmth or erythema. After discussion with orthopedics patient to be discharged with close follow-up with them. Patient reevaluated and updated and agreeable. Blood pressure improved. Undiagnosed new problem with uncertain prognosis? @ -No Drug Therapy requiring intensive monitoring for toxicity (Heparin, Nitro, Insulin, Cardizem)? @ -No Were any procedures done? @ -No Diagnosis/symptom? @ -Right knee effusion Acute, or Chronic, or Acute on Chronic? @ -Acute Uncomplicated (without systemic symptoms) or Complicated (systemic symptoms)? @ -Default Side effects of treatment? @ -No Exacerbation, Progression, or Severe Exacerbation? @ -No Poses a threat to life or bodily function? How? (Chest pain, USA, IA, pneumonia, PE, COPD, DKA, ARF, appy, cholecystitis, CVA, Diverticulitis, Homicidal, Suicidal, threat to staff... and all critical care pts) @ -No (Alfonso Reyes) - Lab Data Lab Results 01/01/24 01/01/24 01/01/24 Range/Units 17:25 17:25 17:25 WBC 9.8 (3.8-10.6) k/uL RBC 4.55 (4.30-5.90) m/uL Hgb 13.6 (13.0-17.5) gm/dL Hct 41.5 (39.0-53.0) % MCV 91.0 (80.0-100.0) fL MCH 29.9 (25.0-35.0) pg MCHC 32.8 (31.0-37.0) g/dL RDW 12.3 (11.5-15.5) % Plt Count 255 (150-450) k/uL MPV 7.0 Neutrophils % 70 % Lymphocytes % 19 % Monocytes % 5 % Eosinophils % 4 % Basophils % 0 % Neutrophils # 6.8 (1.3-7.7) k/uL Lymphocytes # 1.9 (1.0-4.8) k/uL Monocytes # 0.5 (0-1.0) k/uL Eosinophils # 0.4 (0-0.7) k/uL Basophils # 0.0 (0-0.2) k/uL PT 10.6 (10.0-12.5) sec INR 1.0 (<1.2) APTT 24.2 (22.0-30.0) sec Sodium 136 L (137-145) mmol/L Potassium 4.3 (3.5-5.1) mmol/L Chloride 104 (98-107) mmol/L Carbon Dioxide 27 (22-30) mmol/L Anion Gap 5 mmol/L BUN 14 (9-20) mg/dL Creatinine 0.86 (0.66-1.25) mg/dL Est GFR (CKD-EPI)AfAm >90 (>60 ml/min/1.73 sqM) Est GFR (CKD-EPI)NonAf >90 (>60 ml/min/1.73 sqM) Glucose 89 (74-99) mg/dL Plasma Lactic Acid Jason (0.7-2.0) mmol/L Calcium 9.8 (8.4-10.2) mg/dL Total Bilirubin 0.8 (0.2-1.3) mg/dL AST 19 (17-59) U/L ALT 20 (4-49) U/L Alkaline Phosphatase 76 (38-126) U/L C-Reactive Protein <0.5 (<1.0) mg/dL Total Protein 7.5 (6.3-8.2) g/dL Albumin 4.6 (3.5-5.0) g/dL 01/01/24 Range/Units 17:25 WBC (3.8-10.6) k/uL RBC (4.30-5.90) m/uL Hgb (13.0-17.5) gm/dL Hct (39.0-53.0) % MCV (80.0-100.0) fL MCH (25.0-35.0) pg MCHC (31.0-37.0) g/dL RDW (11.5-15.5) % Plt Count (150-450) k/uL MPV Neutrophils % % Lymphocytes % % Monocytes % % Eosinophils % % Basophils % % Neutrophils # (1.3-7.7) k/uL Lymphocytes # (1.0-4.8) k/uL Monocytes # (0-1.0) k/uL Eosinophils # (0-0.7) k/uL Basophils # (0-0.2) k/uL PT (10.0-12.5) sec INR (<1.2) APTT (22.0-30.0) sec Sodium (137-145) mmol/L Potassium (3.5-5.1) mmol/L Chloride (98-107) mmol/L Carbon Dioxide (22-30) mmol/L Anion Gap mmol/L BUN (9-20) mg/dL Creatinine (0.66-1.25) mg/dL Est GFR (CKD-EPI)AfAm (>60 ml/min/1.73 sqM) Est GFR (CKD-EPI)NonAf (>60 ml/min/1.73 sqM) Glucose (74-99) mg/dL Plasma Lactic Acid Jason 1.2 (0.7-2.0) mmol/L Calcium (8.4-10.2) mg/dL Total Bilirubin (0.2-1.3) mg/dL AST (17-59) U/L ALT (4-49) U/L Alkaline Phosphatase (38-126) U/L C-Reactive Protein (<1.0) mg/dL Total Protein (6.3-8.2) g/dL Albumin (3.5-5.0) g/dL Disposition <Natasha Collins - Last Filed: 01/01/24 14:36> Is patient prescribed a controlled substance at d/c from ED?: No Time of Disposition: 19:00 <Alfonso Reyes - Last Filed: 01/01/24 19:00> Clinical Impression: Knee effusion, right Disposition: HOME SELF-CARE Condition: Stable Instructions (If sedation given, give patient instructions): Swollen Knee Joint (ED) Additional Instructions: Please follow-up with orthopedics in the next 1 or 2 days for recheck, call first thing in the morning. Return for fever, redness, warmth, increased swelling, increased pain, worsening or changing symptoms or any other concerns. Referrals: Quique Baker MD [Primary Care Provider] - 1-2 days
--- NOTE | 2024-01-01 15:17 | US ---
EXAMINATION TYPE: US venous doppler duplex LE RT DATE OF EXAM: 01/01/2024 3:02 PM COMPARISON: NONE CLINICAL INDICATION: Male, 58 years old with history of leg welling r/o DVT; right leg pain and edema . Right knee replacement 4 weeks ago, TECHNIQUE: The lower extremity deep venous system is examined utilizing real time linear array sonog abdoul with graded compression, color doppler sonography, and spectral doppler. SIDE PERFORMED: right FINDINGS: VESSELS IMAGED: Common Femoral Vein Deep Femoral Vein Greater Saphenous Vein * Femoral Vein Popliteal Vein Small Saphenous Vein * Proximal Calf Veins (* superficial vessels) Right Leg: No evidence of DVT. Complex area right lower/medial thigh, just above knee = 7.2 x 3.0 x 5.1cm. anechoic area right upper calf = 5.8 x 1.2 x 3.6cm..Color Doppler imaging shows patency of the vessels. Spectral waveforms are within normal limits. IMPRESSION: No ultrasound evidence for deep venous thrombosis. [facility], , 01/01/2024 3:14 PM
[2024-01-01] MEDS: HYDROmorphone 1 MG/ML 1 ML SYRINGE IVP STA (17:24)
[2024-01-01 17:52] LABS: Basophils % (A) 0 %; Eosinophils # (A) 0.4 k/uL (0-0.7); Eosinophils % (A) 4 %; HCT 41.5 % (39.0-53.0); HGB 13.6 gm/dL (13.0-17.5); Lymphocytes # (A) 1.9 k/uL (1.0-4.8); Lymphocytes % (A) 19 %; MCH 29.9 pg (25.0-35.0); MCHC 32.8 g/dL (31.0-37.0); Monocytes # (A) 0.5 k/uL (0-1.0); Monocytes % (A) 5 %; Neutrophils # (A) 6.8 k/uL (1.3-7.7); Neutrophils % (A) 70 %; Platelet Count 255 k/uL (150-450); RBC 4.55 m/uL (4.30-5.90); RDW 12.3 % (11.5-15.5); WBC 9.8 k/uL (3.8-10.6)
[2024-01-01 17:56] VITALS: RESP 18
[2024-01-01 18:03] LABS: ALT 20 U/L (4-49); AST 19 U/L (17-59); African American GFR (CKD) >90 (>60 ml/min/1.73 sqM); Albumin 4.6 g/dL (3.5-5.0); Alkaline Phosphatase 76 U/L (38-126); Anion Gap 5 mmol/L; Blood Urea Nitrogen 14 mg/dL (9-20); C Reactive Protein <0.5 mg/dL (<1.0); Calcium 9.8 mg/dL (8.4-10.2); Carbon Dioxide 27 mmol/L (22-30); Chloride 104 mmol/L (98-107); Glucose 89 mg/dL (74-99); Non-African American GFR(CKD) >90 (>60 ml/min/1.73 sqM); Potassium 4.3 mmol/L (3.5-5.1); Sodium 136 mmol/L (137-145); Total Bilirubin 0.8 mg/dL (0.2-1.3); Total Protein 7.5 g/dL (6.3-8.2)
[2024-01-01 18:04] LABS: Partial Thromboplastin Time 24.2 sec (22.0-30.0); Prothrombin Time 10.6 sec (10.0-12.5)
--- NOTE | 2024-01-01 18:05 | XR ---
EXAMINATION TYPE: XR knee complete RT DATE OF EXAM: 01/01/2024 6:01 PM COMPARISON: None. CLINICAL INDICATION: Male, 58 years old with history of pain post op, pain TECHNIQUE: XR knee complete RT views were obtained FINDINGS: There is no acute fracture/dislocation. Total knee arthroplasty changes noted which appear to be stable. Moderate suprapatellar joint effusion seen. The overlying soft tissue appears unremark able. IMPRESSION: There is no acute fracture or dislocation.ICD 10 NO FRACTURE, INITIAL EVALUATION [facility], , 01/01/2024 6:03 PM
[2024-01-01 18:46] VITALS: BP 160/93; PULSE 80
[2024-01-01] MEDS: HYDROcodone/APAP 5-325MG 1 EACH TAB PO STA (19:40)
== END 2024-01-01 19:43 | disposition home or self-care (01) ==
LOC: EC 13:51
DX: M25.461 Effusion, right knee (principal)
CPT/HCPCS: 36415; 80053; 83605; 85025; 85610; 85730; 86140; 87040; 73562; 93971; 99284; 96374; J1171

== ENCOUNTER → 2024-03-06 | Outpatient (CLI) | payer OTHER ==
--- NOTE | 2024-03-06 16:57 | MR ---
EXAMINATION TYPE: MR lumbar spine wo con DATE OF EXAM: 03/06/2024 COMPARISON: CT lumbar spine 2016 HISTORY: Hx of Right knee surgery done Nov 2023, Ever since then Rt leg feels asleep, lack of feeling TECHNIQUE: Multiplanar, multisequence imaging of the lumbar spine is performed without IV contrast. FINDINGS: Sagittal images of the lumbar spine show vertebral body heights to remain satisfactory. Per sistent dextroconvex scoliosis centered at L5 level. Multilevel spondylolisthesis on sagittal images with grade 1 retrolisthesis L1 on L2, L2 on L3, and L3 on L4 now present. Moderate multilevel disc de siccation and disc space narrowing L2-L3, L4-L5, and L5-S1 levels with heterogeneous Modic type II en dplate changes at L2-L3, posterior L4-L5, and L5-S1 levels. The conus medullaris is normal in positi on and signal ending at L1-L2 level. Axial images show T12-L1 level to appear within normal limits. Axial images at L1-L2 level to spondylolisthesis with mild broad disc bulge minimally effacing anteri or thecal sac. Bilateral neural foramina are patent. Axial images at L2-L3 level show more prominent spondylolisthesis with moderate broad disc bulge effa cing the anterior thecal sac and causing asymmetric moderate right-sided inferior neural foraminal na rrowing. Axial images at L3-L4 levels shows spondylolisthesis with mild broad disc bulge having right lateral disc protrusion component and mild facet arthropathy bilaterally. Bilateral neural foramina are paten t. Axial images at L4-L5 level show mild to moderate facet arthropathy bilaterally. There is mild broad disc bulge mildly effacing the anterior thecal sac. There is mild/moderate right-sided anterior infer ior neural foraminal narrowing. Axial images at L5-S1 level shows mild to moderate left greater than right facet arthropathy. There i s left foraminal/lateral disc protrusion causing moderate left-sided inferior neural foraminal narrow ing. Right-sided neural foramen is patent. Paraspinal muscle bulk is maintained. IMPRESSION: Multilevel spondylolisthesis and degenerative change in the lumbar spine as detailed [facility], , 03/06/2024 4:55 PM
== END | disposition home or self-care (01) ==
LOC: RADMRIMAIN 15:56
PROVIDERS: ATTEND Physical Medicine & Rehabilitation
DX: M47.26 Other spondylosis with radiculopathy, lumbar region (principal); M43.16 Spondylolisthesis, lumbar region
CPT/HCPCS: 72148